=== PATIENT | female | born 1975 | race Asian ===

== ENCOUNTER 2018-10-01 22:53 | Observation (INO) | payer OTHER ==
[~2018-10-01] VITALS: Ht 167.6 cm; Wt 87.6 kg
[2018-10-01 23:00] VITALS: BP 116/64; TEMP 98.8
[2018-10-01 23:58] LABS: PLATELET COUNT 153 K/uL (152-353)
[2018-10-02 00:13] LABS: POTASSIUM 3.3 mmol/L (3.6-5.2)
[2018-10-02 04:00] VITALS: BP 120/61; BP 127/67; TEMP 98.2; TEMP 98.3; Ht 167.6 cm; Wt 87.6 kg
[2018-10-02 08:00] VITALS: BP 141/87; TEMP 98.1
[2018-10-02 12:06] VITALS: BP 138/70; TEMP 98.6
[2018-10-02 16:08] VITALS: BP 119/64; TEMP 98.2
[2018-10-02 16:45] LABS: PLATELET COUNT 153 K/uL (152-353)
[2018-10-02 16:48] LABS: POTASSIUM 3.9 mmol/L (3.6-5.2)
[2018-10-02 20:00] VITALS: BP 134/69; TEMP 99.5
[2018-10-03] VITALS: BP 141/77; TEMP 98.7
[2018-10-03 04:00] VITALS: BP 135/75; TEMP 97.9
[2018-10-03 06:11] LABS: PLATELET COUNT 149 K/uL (152-353)
[2018-10-03 07:36] LABS: POTASSIUM 3.9 mmol/L (3.6-5.2)
[2018-10-03 08:00] VITALS: BP 141/68; TEMP 97.5
[2018-10-03] MEDS ORDERED: FERROUS SULF325 MG PO (09:55)
== END 2018-10-03 11:15 | disposition home or self-care (01) ==
LOC: ED 22:53 → MED/SURG 10-02 00:10
PROVIDERS: Emergency Medicine; ADMIT Emergency Medicine
PROC: 30233N1 Transfusion of Nonautologous Red Blood Cells into Peripheral Vein, Percutaneous Approach (ICD-10-PCS; principal; 2018-10-02)
DX: D50.8 Other iron deficiency anemias (principal); R55 Syncope and collapse; E87.6 Hypokalemia; N92.0 Excessive and frequent menstruation with regular cycle; R73.9 Hyperglycemia, unspecified
CPT/HCPCS: 36415; 80053; 83036; 85027; 86850; 86900; 86901; 86922; 93005; 99220; 99283; G0378; P9016